=== PATIENT | female | born 1995 | race Caucasian/White ===

== ENCOUNTER 2016-09-10 05:57 | Emergency (ER) | payer OTHER ==
[2016-09-10 07:00] LABS: HEMOGLOBIN 13.9 gm/dl (12.3-15.3); RED BLOOD COUNT 4.81 M/UL (4.00-5.10); WHITE BLOOD COUNT 6.2 K/UL (4.5-11.0)
[2016-09-10 07:20] LABS: BUN/CREATININE RATIO 18 (0-10)
== END 2016-09-10 13:35 | disposition left against medical advice (07) ==
LOC: ER1 05:57
PROVIDERS: Student in an Organized Health Care Education/Training Program
DX: F15.10 Other stimulant abuse, uncomplicated (principal)
CPT/HCPCS: 36415; 36600; 70450; 71010; 72125; 72170; 80053; 80307; 81001; 82550; 82553; 82803; 83874; 84484; 84703; 85025; 93005; 99285; G0480; J7040

== ENCOUNTER 2016-10-13 16:43 | Emergency (ER) | payer OTHER ==
[2016-10-13 18:02] LABS: HEMOGLOBIN 13.7 gm/dl (12.3-15.3); RED BLOOD COUNT 4.72 M/UL (4.00-5.10); WHITE BLOOD COUNT 7.5 K/UL (4.5-11.0)
[2016-10-13 18:17] LABS: BUN/CREATININE RATIO 13 (0-10)
== END 2016-10-13 22:12 | disposition home or self-care (01) ==
LOC: ER1 16:43
PROVIDERS: Family Medicine
DX: R10.2 Pelvic and perineal pain (principal); F17.200 Nicotine dependence, unspecified, uncomplicated; Z88.0 Allergy status to penicillin; Z88.2 Allergy status to sulfonamides
CPT/HCPCS: 36415; 72170; 76856; 80053; 84703; 85025; 99284

== ENCOUNTER 2016-11-11 17:55 | Emergency (ER) | payer OTHER ==
[2016-11-11 20:48] LABS: HEMOGLOBIN 13.4 gm/dl (12.3-15.3); RED BLOOD COUNT 4.64 M/UL (4.00-5.10); WHITE BLOOD COUNT 6.5 K/UL (4.5-11.0)
[2016-11-11 21:04] LABS: BUN/CREATININE RATIO 10 (0-10)
== END 2016-11-11 23:10 | disposition home or self-care (01) ==
LOC: ER1 17:55
PROVIDERS: Physician Assistant
DX: H00.014 Hordeolum externum left upper eyelid (principal); S40.262A Insect bite (nonvenomous) of left shoulder, initial encounter; T14.8 Other injury of unspecified body region; W57.XXXA Bitten or stung by nonvenomous insect and other nonvenomous arthropods, initial encounter; Z88.0 Allergy status to penicillin; Z88.2 Allergy status to sulfonamides; Z88.8 Allergy status to other drugs, medicaments and biological substances
CPT/HCPCS: 36415; 80053; 80307; 81001; 84703; 85025; 87086; 93005; 99283